=== PATIENT | male | born 1990 | race Caucasian/White ===

== ENCOUNTER 2021-11-18 12:09 | Inpatient (IN) | payer OTHER ==
[~2021-11-18] VITALS: Ht 193 cm; Wt 127.0 kg
[~2021-11-18 12:09] MED LIST: AMOCLA875 PO; ATOM40; BUPR100; Bactrim Ds Tab1 EACH PO; GABA300; HYDACE5 PO; Keflex500 MG PO; METPHE27ER; QUET100; SERT50; SILSUL1TC TOP; SULTRIDS PO; [UNRECOGNIZED DRUG - OTHER]
[2021-11-18 13:16] LABS: Hematocrit 54.9 % (37.0-53.0); Hemoglobin 20.3 g/dL (13.5-17.5); Mean Corpuscular HGB 33.3 pg (26.0-34.0); Mean Corpuscular Volume 90 fL (80-100); Platelet Count 285 K/mm3 (150-400); RDW Standard Deviation 42.4 fL (35.1-46.3); White Blood Cell Count 39.16 K/mm3 (4.00-11.30)
[2021-11-18 13:45] LABS: Alanine Aminotransfer (ALT/SGP 33 U/L (12-78); Albumin, Blood 2.5 g/dL (3.4-5.0); Albumin/Globulin Ratio 0.6 (0.8-1.8); Alk Phos 150 U/L (50-136); Anion Gap 12 mmol/L (6-16); Aspartate Aminotrans (AST/SGOT 37 U/L (12-37); Bilirubin, Total 0.6 mg/dL (0.1-1.0); Blood Urea Nitrogen 20 mg/dL (8-24); Bun/Creatinine Ratio 19.2 (12.0-20.0); C-REACTIVE PROTEIN, EXT RANGE >19.000 mg/dL (0.000-0.300); CO2, Blood 23 mmol/L (21-32); Calcium, Blood 8.3 mg/dL (8.5-10.1); Chloride, Blood 94 mmol/L (98-108); Creatinine, Blood 1.04 mg/dL (0.60-1.20); Globulin, Blood 4.2 g/dL (2.2-4.0); Glomerular Filtration Rate 98 (60-); Glucose, Blood 129 mg/dL (70-99); Sodium, Blood 129 mmol/L (136-145); Total Protein, Blood 6.7 g/dL (6.4-8.2)
[2021-11-18 13:55] LABS: BAND PERCENT MAN 15 % (0-8); BASOPHILS PERCENT MAN 0 % (0-2); EOSINOPHILS ABSOLUTE MAN 0.39 K/mm3 (0.00-0.68); EOSINOPHILS PERCENT MAN 1 % (0-6); LYMPHOCYTES ABSOLUTE MAN 3.91 K/mm3 (0.84-5.20); LYMPHOCYTES PERCENT MAN 10 % (21-46); MONOCYTES ABSOLUTE MAN 3.52 K/mm3 (0.16-1.47); MONOCYTES PERCENT MAN 9 % (4-13); NEUTROPHILS ABSOLUTE MAN 31.71 K/mm3 (1.96-9.15); SEG NEUTROPHILS PERCENT MAN 66 % (41-73); TOTAL CELLS COUNTED 200
--- NOTE | 2021-11-18 17:27 | NUR ---
ASSUMED CARE OF PT AT 1650 REPORT FROM OR GIVEN TO THIS RN AND BLANCA DRAKE RN. PT HYPERTENSIVE AND VENTILATED. NO SEDATION OR PRESSORS RUNNING AT THIS TIME. LR RUNNING TO GRAVITY. LEFT ARM FASCIOTOMY TO LEFT ARM AND LEFT UPPER SHOULDER. KIRILL BANDAGE COVERING AREAS AT THIS TIME. CHEST X-RAY DONE. PROP RUNNING AT 45 MCG/KG/MIN. 200 ESTIMATED BLOOD LOSS. 3 LITERS LR GIVEN IN OR. RIGHT FEMORAL CENTRAL LINE PLACED IN OR, PATENT. PT SMOKES REGULARY, ALCOHOL WELL. LEFT ARM ISSUE D/T METH USE. PERIPHERAL IV IN RIGHT HAND AND RIGHT AC. SMALL AMOUNT OF URINE IN CATHETER BAG. MCKOY PATENT AND DRAINING TO GRAVITY. SIGNIFICANT SWELLING ON CHEST AREA MARKED WITH SKIN PEN TO FURTHER EVAL SPREAD. WAITING FOR TRANSPORT TO [facility].
--- NOTE | 2021-11-18 18:11 | NUR ---
CALLED [facility] NURSE WITH REPORT OF PATIENT STATUS AND UPDATE.
--- NOTE | 2021-11-21 14:51 | NUR ---
11/21/21 1451 Gwendolyn Mckinley VERIFICATIONS: EDIT CHART.
== END 2021-11-18 18:45 | disposition short-term general hospital (02) | DRG 853 ==
LOC: ER 12:09 → ICUW 16:47 → ICUE 16:54 → ER 18:15 → ICUE 18:45 → ER 20:45
PROVIDERS: Orthopaedic Surgery; Physician Assistant; ADMIT Internal Medicine
PROC: 0JDH0ZZ Extraction of Left Lower Arm Subcutaneous Tissue and Fascia, Open Approach (ICD-10-PCS; 2021-11-18)
PROC: 0KN80ZZ Release Left Upper Arm Muscle, Open Approach (ICD-10-PCS; 2021-11-18)
PROC: 3E033XZ Introduction of Vasopressor into Peripheral Vein, Percutaneous Approach (ICD-10-PCS; 2021-11-18)
PROC: 3E03329 Introduction of Other Anti-infective into Peripheral Vein, Percutaneous Approach (ICD-10-PCS; 2021-11-18)
PROC: 05HY33Z Insertion of Infusion Device into Upper Vein, Percutaneous Approach (ICD-10-PCS; principal; 2021-11-18 15:00)
DX: A41.9 Sepsis, unspecified organism (principal); J96.01 Acute respiratory failure with hypoxia; M72.6 Necrotizing fasciitis; R65.21 Severe sepsis with septic shock; E87.1 Hypo-osmolality and hyponatremia; F17.200 Nicotine dependence, unspecified, uncomplicated; F15.10 Other stimulant abuse, uncomplicated; F98.8 Other specified behavioral and emotional disorders with onset usually occurring in childhood and adolescence; Z90.49 Acquired absence of other specified parts of digestive tract; Z90.89 Acquired absence of other organs
CPT/HCPCS: 36415; 71045; 73201; 80053; 83605; 85025; 86140; 87040; 87070; 87205; 94002; 96365-59; 96375-59; 99285-25; J1170; J2543; J2704; J3010; J3370; J7030; J7060; J7120; Q9967